=== PATIENT | male | born 1975 ===

== ENCOUNTER 2016-11-29 13:58 | Emergency (ER) | payer MEDICAID, OTHER ==
[2016-11-29 14:41] LABS: Hematocrit 45.9 % (42.0-52.0); Hemoglobin 15.6 gm/dL (13.5-18.0); Mean Cell Volume 86.6 fl (78-100); Mean Corpuscular Hemoglobin 29.4 pg (27-31); Mean Platelet Volume 9.2 fl (6.0-9.5); Neutrophil # 1.2 K/mm3 (1.3-6.0); Neutrophil % 37.2 % (42-75.0); Platelet Count 187 K/mm3 (150-450); Red Cell Distribution Width 11.8 % (11.5-14.0); White Blood Count 3.3 K/mm3 (4.0-10.5)
--- OUTSIDE RECORDS SUMMARY | 2016-11-29 14:46 | XMS REPORT | Continuity of Care Document ---
:1975 Author Organization [facility] ([facility]) Address [address] [place] [address] Phone [phone] Care Team Providers Name Role Phone Paramjit Montesinos Primary Care Provider [phone] Source Comments This disclosure is being made pursuant to the Care Everywhere program, applicable federal and state laws, and may not contain all informaitonavailable regarding this patient.[facility] ([facility]) Active Allergies and Adverse Reactions Allergen Noted Date Severity Reactions Comments Codeine 04/30/2014 OTHER Upset stomach Current Medications Prescription Sig. Disp. Refills Start Date End Date Status albuterol 90 Use 1-2 Puffs by 1 Inhaler 11 12/17/2013 Active mcg/Actuation inhalation every 4 inhaler hours as needed. Indications: BRONCHOSPASM PREVENTION nicotine 14 mg/24 hr 1 Patch daily. 14 Patch 0 04/30/2014 Active patch Indications: NICOTINE DEPENDENCE nicotine 7 mg/24 hr apply 1 Patch on the 14 Patch 0 04/30/2014 Active patch skin daily. Indications: NICOTINE DEPENDENCE Active Problems Problem Noted Date Dyspnea 12/17/2013 Hypercholesterolemia 10/30/2013 Hypertriglyceridemia 10/30/2013 Nicotine dependence 10/29/2013 Fatigue 10/29/2013 Chest pain 10/29/2013 Screening for cholesterol level 10/29/2013 Screening for diabetes mellitus 10/29/2013 Social History Tobacco Use Types Packs/Day Years Used Date Light Tobacco Smoker Cigarettes 0.25 10 Smokeless Tobacco: Never Used Tobacco Cessation:Ready to Quit: Yes; Counseling Given: Yes Comments: Alcohol Use Drinks/Week oz/Week Comments Yes 4 Cans of beer 1 Standard drinks or equivalent Last Filed Vital Signs Vital Sign Reading Time Taken Blood Pressure 104/64 04/30/2014 4:50 PM CDT Pulse 62 04/30/2014 4:50 PM CDT Temperature 36.3 C (97.3 F) 04/30/2014 4:48 PM CDT Respiratory Rate 14 12/17/2013 8:42 AM [employer] Height 1.676 m (5' 5.98") 12/17/2013 8:42 AM [employer] Weight 67.5 kg (148 lb 13 oz) 04/30/2014 4:48 PM CDT Body Mass Index 24.03 04/30/2014 4:48 PM CDT Oxygen Saturation 96% 12/17/2013 8:42 AM [employer] Plan of Care Health Maintenance Due Date Last Done Comments Hepatitis B Vaccine (1 of 3 - Primary 1975 Series) Tdap Vaccine 01/01/1987 MMR Vaccine 01/01/1994 Td Vaccine 01/01/1994 Pneumococcal Vaccine (1 of 1 - PPSV23) 01/01/1995 Influenza Vaccine: Seasonal (#1) 05/21/2016 Lipid Disorder Screening 04/30/2019 04/30/2014, 10/27/2013 Results from Last 3 Months Not on file
[2016-11-29 14:54] LABS: Albumin * 3.9 gm/dl (3.4-5.0); Anion Gap 11.2 mmol/L (6.8-13.8); BUN/Creatinine Ratio 10.8 (9.0-21.6); Bilirubin, Total 0.3 mg/dL (0.0-1.1); Ca. Corrected For Albumin 8.8 mg/dL (8.4-10.2); Carbon Dioxide 27.9 mmol/L (24-32.6); Potassium 4.1 mmol/L (3.4-4.6); Total Protein 8.1 gm/dL (6.2-8.2)
[2016-11-29 15:16] VITALS: BP 119/82
--- NOTE | 2016-11-29 15:36 | ERNOTE ---
Integumentary HPI - Narrative Date of Service: 11/29/16 - General Presenting Symptoms: other - skin problem Time Seen by Provider: 11/29/16 14:18 Source: patient Exam Limitations: no limitations - Immun/Allergies/Home Medications Immunizations: IMMUNIZATION HX Immunizations Up to Date Yes History of Influenza Vaccine No Allergies/Adverse Reactions: Allergies Allergy/AdvReac Type Severity Reaction Status Date / Time No Known Allergies Allergy Verified 11/29/16 14:15 Home Medications: HOME MEDICATIONS Clindamycin HCl [Cleocin HCl] 300 mg PO QID #40 capsule 11/29/16 [Last Taken Unknown] Omeprazole 40 mg PO DAILY 11/29/16 [Last Taken Unknown] - History of Present Illness Narrative: Patient presents to the ED concerned about an area on his left thigh. He relates an area left thigh that he noticed today and "popped" in the shower. He relates he "popped" this area left thigh and got some dark material and blood out of it. Relates he hasn't felt well for a couple of days, as he has had a "cold" with nasal congestion and malaise and cough. The reason he came in was for the area on his leg. He relates he wouldn't have come in otherwise. No injury. No other problems with the skin. No MALLORY or CP. No SOB. No abdominal pain. Location: Reports: other - left lateral thigh Quality: Reports: other - "popped" area [employer] Severity: mild Exposure: Reports: no cause identified Modifying Factors - (Improves): Reports: nothing Modifying Factors - (Worsens): Reports: nothing Associated Symptoms: Denies: blisters, hives, petechiae, change in skin texture , fever, headache, sore throat Prior Treatment: Denies: recently seen Review of Systems - Review of Systems Constitutional: Absent: fever Respiratory: Present: cough Cardiology: Absent: chest pain Gastrointestinal/Abdominal: Absent: abdominal pain Genitourinary: Absent: dysuria Neurological: Absent: weakness - Patient's Past Medical History Patient History - Medical: GERD Patient History - Cardiac/Respiratory: Pneumonia Patient History - Cancer: No Hx of Cancer Patient History - Surgical Procedures: Other - Social History Living Situations: home Psych History: Hx of Anxiety, Hx of Depression Smoking Status: Current every day smoker - Immunizations Immunizations Up to Date: Yes History of Influenza Vaccine: No Physical Exam - Physical Exam General Appearance: Present: alert, no apparent distress, other - Sitting in the chair. Stable, well hydrated, non-toxic, no distress. No respiratory distress. Eye Exam: Normal inspection: bilateral, PERRL: bilateral Ears, Nose, Throat: Present: normal ENT inspection Neck: Present: normal inspection Respiratory: Present: no respiratory distress, normal breath sounds, no accessory muscle use, lungs clear Cardiovascular/Chest: Present: regular rate, rhythm Gastrointestinal/Abdominal: Present: normal bowel sounds, nontender, soft Back Exam: Present: normal range of motion Extremity Exam: Present: no edema, normal range of motion. Absent: decreased range of motion, joint redness, joint swelling, extremity edema Neurological Exam: Present: alert, normal mood/affect, no motor/sensory deficits , floor sander II-XII nml as tested Skin Exam: Present: other - THere is a small reddned area left lateral thigh. No fluctuance. Nothing to be drained. 1cm surrouding redness. No lymphangitis. No nec fasc. This area in total is no more than 1cm. ED Progress - Results and Orders Patient's Lab Results:: I have reviewed the patient's lab results. - Vital Signs Patient's Vital Signs:: I have reviewed the patient's vital signs. Vital Signs: Vital Signs 11/29/16 11/29/16 14:09 15:15 Temperature 35.4 C L Pulse Rate 71 Respiratory 16 Rate Blood Pressure 119/82 O2 Sat by Pulse 100 Oximetry - Progress/Reassessment Chief Complaint: Cellulitis Progress Note-Subjective: 11/29/16 15:32 No nec fasc, no drainable abscess. No sepsis or toxicity. Will cover with ABx and have him re-checked. Other Sx seem viral in nature. Departure Clinical Impression: Skin infection - Departure Disposition: Home self-care Condition: Stable Instructions: Cellulitis, Adult, [id number] Additional Instructions: Rest. Fluids. Antibiotics as directed. Follow-up with your doctor in 3 days for a re-check. Return for fever, spreading redness or if your condition worsens or changes in any way. Referrals: [Primary Care Provider] - Prescriptions: Clindamycin HCl [Cleocin HCl] 300 mg PO QID #40 capsule
== END 2016-11-29 15:40 | disposition home or self-care (01) ==
LOC: ER 13:58
DX: L08.9 Local infection of the skin and subcutaneous tissue, unspecified (principal); F17.210 Nicotine dependence, cigarettes, uncomplicated; K21.9 Gastro-esophageal reflux disease without esophagitis